=== PATIENT | male | born 1950 | race American Indian/Alaskan Native ===

== ENCOUNTER 2022-07-22 13:30 | Inpatient (IN) | payer MEDICARE ==
[2022-07-22] MEDS ORDERED: ATROPINE 1 MG/ML VIAL IV ONE (14:00)
--- NOTE | 2022-07-22 14:04 | Emergency Department Report ---
- General Chief complaint: Weakness Stated complaint: BRADYCARDIA Time Seen by Provider: 07/22/22 13:57 Source: EMS Mode of arrival: Stretcher Limitations: Altered Mental Status, Physical Limitation - History of Present Illness Initial comments: This is a 71-year-old male who presents to the emergency department with slow heart rate. Patient has history of previous stroke, aneurysm, congestive heart failure and does not provide history. Per EMS the patient is on hospice but is not DNR. At the nursing facility noted the patient's heart rate was low and they asked family if they wanted patient to be transferred to the hospital and they said yes. Patient has no complaints at this time of pain that he is able to answer yes or no questions. Severity scale (0 -10): 0 - Related Data Home Medications Medication Instructions Recorded Confirmed Last Taken Acetaminophen TAB 2 cap PO PRN PRN 07/17/15 Unknown Alum-Mag Hydrox-Simeth 20 ml PO PRN PRN 07/17/15 Unknown [id number]/5Ml (Nf) Aspirin BABY CHEW TAB 1 tab PO DAILY 07/17/15 Unknown Coreg 25 mg PO BID 07/17/15 Unknown Diovan Hct 320-12.5 mg 1 tab PO DAILY 07/17/15 Unknown Fish Oil 2 cap PO BID 07/17/15 Unknown Procardia Xl 60 mg PO DAILY 07/17/15 Unknown Vitamin D 2,000 units PO DAILY 07/17/15 Unknown Zanaflex 4 mg PO BID PRN 07/17/15 Unknown ZyrTEC 1 tab PO DAILY 07/17/15 Unknown cloNIDine 0.3 mg PO TID 07/17/15 Unknown hydrALAZINE 100 mg PO TID 07/17/15 Unknown Pravastatin 20 mg PO DAILY 07/18/15 Unknown PriLOSEC 40 mg PO DAILY 07/18/15 Unknown Allergies Allergy/AdvReac Type Severity Reaction Status Date / Time Penicillins Allergy Unknown Verified 07/22/22 13:42 ED Review of Systems ROS: Stated complaint: BRADYCARDIA Other details as noted in HPI Comment: Unobtainable due to pts medical conditions ED Past Medical Hx - Medications Home Medications: Home Medications Medication Instructions Recorded Confirmed Last Taken Type Acetaminophen TAB 2 cap PO PRN PRN 07/17/15 Unknown History Alum-Mag Hydrox-Simeth 20 ml PO PRN PRN 07/17/15 Unknown History [phone]/5Ml (Nf) Aspirin BABY CHEW TAB 1 tab PO DAILY 07/17/15 Unknown History Coreg 25 mg PO BID 07/17/15 Unknown History Diovan Hct 320-12.5 mg 1 tab PO DAILY 07/17/15 Unknown History Fish Oil 2 cap PO BID 07/17/15 Unknown History Procardia Xl 60 mg PO DAILY 07/17/15 Unknown History Vitamin D 2,000 units PO DAILY 07/17/15 Unknown History Zanaflex 4 mg PO BID PRN 07/17/15 Unknown History ZyrTEC 1 tab PO DAILY 07/17/15 Unknown History cloNIDine 0.3 mg PO TID 07/17/15 Unknown History hydrALAZINE 100 mg PO TID 07/17/15 Unknown History Pravastatin 20 mg PO DAILY 07/18/15 Unknown History PriLOSEC 40 mg PO DAILY 07/18/15 Unknown History ED Physical Exam - General Limitations: Altered Mental Status, Physical Limitation General appearance: alert, in no apparent distress - Head Head exam: Present: atraumatic, normocephalic - Eye Eye exam: Present: normal appearance - ENT ENT exam: Present: mucous membranes moist - Neck Neck exam: Present: normal inspection - Respiratory Respiratory exam: Present: normal lung sounds bilaterally. Absent: respiratory distress - Cardiovascular Cardiovascular Exam: Present: bradycardia. Absent: systolic murmur, diastolic murmur, rubs, gallop - GI/Abdominal GI/Abdominal exam: Present: soft, normal bowel sounds. Absent: tenderness - Rectal Rectal exam: Present: deferred - Extremities Exam Extremities exam: Present: normal inspection - Back Exam Back exam: Present: normal inspection - Neurological Exam Neurological exam: Present: alert, other (Is at baseline mental status) - Psychiatric Psychiatric exam: Present: normal affect, normal mood - Skin Skin exam: Present: warm, dry, intact, normal color. Absent: rash ED Course Vital Signs 07/22/22 07/22/22 07/22/22 13:30 14:45 14:52 Temperature 98.2 F Pulse Rate 40 L 37 L 36 L Respiratory 18 18 18 Rate Blood Pressure 189/120 165/87 145/80 [Left] O2 Sat by Pulse 92 95 99 Oximetry 07/22/22 07/22/22 07/22/22 15:52 16:27 18:27 Temperature Pulse Rate 34 L 32 L 34 L Respiratory 18 18 17 Rate Blood Pressure 155/75 152/96 145/78 [Left] O2 Sat by Pulse 99 97 99 Oximetry 07/22/22 07/22/22 18:31 19:58 Temperature Pulse Rate 33 L Respiratory 18 15 Rate Blood Pressure 180/85 [Left] O2 Sat by Pulse 99 95 Oximetry - Reevaluation(s) Reevaluation #1: 07/22/22 17:18 Patient's potassium resulted as normal. BNP is elevated, troponin is elevated. Patient given a rectal aspirin, started on heparin drip cardiology has been consulted and plan for admission to the hospitalist. ED Medical Decision Making - Lab Data Result diagrams: 07/22/22 18:31 07/22/22 14:47 - EKG Data -: EKG Interpreted by Me Rate: bradycardia - EKG Data 07/22/22 15:35 EKG shows complete AV block with wide QRS complex. There is also right bundle branch block. The rate is 36. - Medical Decision Making This is a 71-year-old male who presents to the emergency department with b radycardia. Patient is noted to be in complete heart block. Atropine was attempted which did not improve patient's heart rate. Patient's blood pressure is normal and patient is awake and alert and does not show any evidence of distress. Given this we are awaiting electrolytes but I am giving patient calcium and Lasix as his chest x-ray shows cardiomegaly and edema. Patient is from hospice so his POA is present and will decide next steps regarding the patient. He is not currently DNR. Critical Care Time: Yes Critical care time in (mins) excluding proc time.: 52 Critical care attestation.: If time is entered above; I have spent that time in minutes in the direct care of this critically ill patient, excluding procedure time. ED Disposition Clinical Impression: Complete heart block, Heart failure Disposition: ADMITTED INPATIENT Is pt being admited?: Yes Does the pt Need Aspirin: Yes Condition: Stable
--- NOTE | 2022-07-22 14:21 | XRay Report ---
CHEST 1 VIEW 07/22/2022 2:07 PM INDICATION / CLINICAL INFORMATION: bradycardia. COMPARISON: None available. FINDINGS: SUPPORT DEVICES: None. HEART / MEDIASTINUM: There is mild cardiomegaly. LUNGS / PLEURA: There are bilateral perihilar opacities. No pneumothorax. ADDITIONAL FINDINGS: No significant additional findings. IMPRESSION: 1. Mild cardiomegaly with bilateral perihilar opacities likely indicating pulmonary edema Signer Name: Austin Gonzalez MD Signed: 07/22/2022 2:17 PM Workstation Name: [email or web address]
[2022-07-22] MEDS ORDERED: ATROPINE 0.1% (1 MG/10 ML) CARDIAC SYRINGE ONE (14:34)
[2022-07-22] MEDS ORDERED: CALCIUM GLUCONATE 1,000 MG in SODIUM CHLORIDE 0.9% 100 ML IV ONE (15:27)
[2022-07-22] MEDS ORDERED: FUROSEMIDE 40 MG/4 ML INJ IV ONE (15:27)
[2022-07-22 16:27] LABS: Alanine Aminotransferase 86 units/L (7-56); Albumin 3.7 g/dL (3.9-5); BUN/Creatinine Ratio 38; Blood Urea Nitrogen 45 mg/dL (9-20); Calcium 9.3 mg/dL (8.4-10.2); Hemolysis Index 15
[2022-07-22] MEDS ORDERED: CALC GLUCONATE 1GM/NS 100 ML 1 GM/100 ML BAG IV ONE (16:30)
[2022-07-22 16:41] LABS: Basophils % (Auto) 0.5 % (0.0-1.8); Eosinophils % (Auto) 0.7 % (0.0-4.3); Hematocrit 40.1 % (35.5-45.6); Hemoglobin 12.8 gm/dl (11.8-15.2); Lymphocytes # (Auto) 1.5 K/mm3 (1.2-5.4); Lymphocytes % (Auto) 26.1 % (13.4-35.0); Mean Corpuscular HGB Conc 32 % (32-34); Mean Corpuscular Volume 96 fl (84-94); Monocytes # (Auto) 0.5 K/mm3 (0.0-0.8); Monocytes % (Auto) 9.3 % (0.0-7.3); Platelet Count 199 K/mm3 (140-440); Red Blood Count 4.17 M/mm3 (3.65-5.03); Red Cell Distribution Width 14.9 % (13.2-15.2)
[2022-07-22 17:08] LABS: Chol/HDL Ratio 3.48 %; HDL Cholesterol 49 mg/dL (40-59); LDL Cholesterol,Direct 87 mg/dL (50-130)
[2022-07-22] MEDS ORDERED: ASPIRIN 300 MG RECT SUPP PR ONE (17:14)
[2022-07-22] MEDS ORDERED: HEPARIN PRN BOLUS(standard intensity drip) IV (17:14)
[2022-07-22] MEDS ORDERED: HEPARIN BOLUS 10,000 UNIT/10 ML VIAL IV ONE (17:14)
--- NOTE | 2022-07-22 17:27 | History and Physical Report ---
History of Present Illness Chief complaint: His heart rate was in the 40s History of present illness: 71 YO Male Longterm Facility Resident at [facility] currently on Hospice Care with CHF, Vascular Dementia, Cerebral Atherosclerosis, Malnutrition, Debility, Metabolic Encephalopathy, GERD, HLD presents ED for evaluation. Patient is confused and lethargic the time of evaluation is unable to provide history. Patient history [facility] staff, ED staff, as well as long term facility staff. Patient staff reports that patient was found to have a heart rate in the 40s today. EMS was notified and upon arrival the patient was found to be in distress and simply transported to [facility] for further care and evaluation of the aforementioned symptoms. The patient seen and evaluated in the emergency department. All lab and imaging studies reviewed. Patient family revoked hospice benefit and request aggressive medical therapy this time. Patient found to have complete heart block, as well as clinical symptoms consistent with CHF decompensation, NSTEMI, and hyponatremia. Cardiology team consulted in ED. Patient admitted to IMCU and initiated on ACS protocol as well as CHF protocol. No reports of fever, chills, chest pain, palpitation, productive cough, skin rash and recent contact, known exposure to COVID-19. Patient is lethargic with diminished cognition at time of evaluation but has a positive gag reflex and is able to protect his airway without difficulty the time my evaluation. Past History Past Medical History: GERD, heart failure, hypertension, hyperlipidemia, other (See HPI) Past Surgical History: No surgical history, Other (Reviewed) Social history: . denies: smoking, alcohol abuse, prescription drug abuse Family history: diabetes, hypertension Medications and Allergies Allergies Allergy/AdvReac Type Severity Reaction Status Date / Time Penicillins Allergy Unknown Verified 07/22/22 13:42 Home Medications Medication Instructions Recorded Confirmed Last Taken Type Acetaminophen TAB 2 cap PO PRN PRN 07/17/15 Unknown History Alum-Mag Hydrox-Simeth 20 ml PO PRN PRN 07/17/15 Unknown History [phone]/5Ml (Nf) Aspirin BABY CHEW TAB 1 tab PO DAILY 07/17/15 Unknown History Coreg 25 mg PO BID 07/17/15 Unknown History Diovan Hct 320-12.5 mg 1 tab PO DAILY 07/17/15 Unknown History Fish Oil 2 cap PO BID 07/17/15 Unknown History Procardia Xl 60 mg PO DAILY 07/17/15 Unknown History Vitamin D 2,000 units PO DAILY 07/17/15 Unknown History Zanaflex 4 mg PO BID PRN 07/17/15 Unknown History ZyrTEC 1 tab PO DAILY 07/17/15 Unknown History cloNIDine 0.3 mg PO TID 07/17/15 Unknown History hydrALAZINE 100 mg PO TID 07/17/15 Unknown History Pravastatin 20 mg PO DAILY 07/18/15 Unknown History PriLOSEC 40 mg PO DAILY 07/18/15 Unknown History Active Meds: Active Medications Heparin Sodium (Porcine) (Heparin Prn Bolus(Standard Intensity Drip)) 2,000 unit 40 unit/kg (2000 unit) IV Q6H PRN PRN Reason: For Heparin Anti-Xa < 0.1 CALC GLUCONATE 1GM/NS 100 ML (Calcium Gluonate/Ns 1,000mg/100ml) 1 gm in 100 mls @ 100 mls/hr IV ONCE ONE Stop: 07/22/22 17:29 Last Admin: 07/22/22 16:00 Dose: 100 mls/hr Heparin Sodium/Sodium Chloride (Heparin/ 0.45% Nacl-25,000 Unit/250 Ml) 25,000 unit in 250 mls @ 7.348 mls/hr IV TITRATE HOLLAND; Protocol Review of Systems ROS unobtainable: due to mental status Exam - Constitutional Vitals: Temp Pulse Resp BP Pulse Ox 98.2 F 32 L 18 152/96 97 07/22/22 13:30 07/22/22 16:27 07/22/22 16:27 07/22/22 16:27 07/22/22 16:27 General appearance: Present: mild distress, cachectic - EENT Eyes: Present: PERRL ENT: hearing intact, clear oral mucosa, hearing decreased - Neck Neck: Present: supple, normal ROM - Respiratory Respiratory effort: normal Respiratory: bilateral: CTA - Cardiovascular Heart Sounds: Present: S1 & S2. Absent: rub, click - Extremities Extremities: no ischemia Extremity abnormal: edema Peripheral Pulses: within normal limits - Abdominal General gastrointestinal: Present: soft, non-tender, non-distended, normal bowel sounds Male genitourinary: Present: normal - Integumentary Integumentary: Present: clear, warm, dry - Musculoskeletal Musculoskeletal: generalized weakness - Psychiatric Psychiatric: no appropriate mood/affect, no intact judgment & insight, no memory intact - Neurologic Neurologic: moves all extremities, no gait normal HEART Score - HEART Score Troponin: Troponin T 0.153 ng/mL (0.00-0.029) H* 07/22/22 14:47 Results - Labs CBC & Chem 7: 07/22/22 18:31 07/22/22 14:47 Labs: Abnormal lab results 07/22/22 07/22/22 Range/Units 14:47 14:47 MCV 96 H (84-94) fl [place] % (Auto) 9.3 H (0.0-7.3) % Sodium 150 H (137-145) mmol/L Chloride 113.1 H (98-107) mmol/L BUN 45 H (9-20) mg/dL Magnesium 2.50 H (1.7-2.3) mg/dL AST 50 H (5-40) units/L ALT 86 H (7-56) units/L Troponin T 0.153 H* (0.00-0.029) ng/mL NT-Pro-B Natriuret Pep 89374 H (0-900) pg/mL Albumin 3.7 L (3.9-5) g/dL Assessment and Plan - Patient Problems (1) NSTEMI (non-ST elevated myocardial infarction) Current Visit: No Status: Acute Plan to address problem: ACS protocol: Serial cardiac enzymes, EKG, telemetry monitoring, therapeutic anticoagulation, cardiology team consulted, further care and evaluation as per cardiology team. (2) Complete heart block Current Visit: No Status: Acute Plan to address problem: Patient admitted to IMCU, telemetry monitoring, supportive care, positive inotropic therapy as clinically indicated. Cardiology team consulted. (3) CHF (congestive heart failure) Current Visit: Yes Status: Acute Qualifiers: Heart failure type: systolic Heart failure chronicity: acute on chronic Qualified Code(s): I50.23 - Acute on chronic systolic (congestive) heart failure Plan to address problem: Strict I/O, monitoring application, daily weight, afterload reduction, blood pressure control, supplemental oxygen, pulse oximetry, cardiology team consulted. (4) Vascular dementia Current Visit: Yes Status: Acute Qualifiers: Dementia behavioral disturbance: without behavioral disturbance Qualified Code(s): F01.50 - Vascular dementia without behavioral disturbance Plan to address problem: Verbal prompting, verbal redirection, benzodiazepine therapy as clinically indicated. (5) Cerebral atherosclerosis Current Visit: Yes Status: Acute Plan to address problem: Risk factor reduction, antiplatelet therapy as clinically indicated. Supportive care. (6) Debility Current Visit: Yes Status: Acute Plan to address problem: Fall precautions, supportive care. (7) Malnutrition Current Visit: Yes Status: Acute Qualifiers: Malnutrition type: protein-calorie malnutrition Protein-calorie malnutrition severity: moderate Qualified Code(s): E44.0 - Moderate protein- calorie malnutrition Plan to address problem: Increase protein intake, dietary segmentation and when patient is awake and alert only. (8) GERD (gastroesophageal reflux disease) Current Visit: Yes Status: Acute Qualifiers: Esophagitis presence: without esophagitis Qualified Code(s): K21.9 - Gastro-esophageal reflux disease without esophagitis Plan to address problem: PPI therapy, supportive care. (9) Hypertension Current Visit: Yes Status: Acute Qualifiers: Hypertension type: primary hypertension Qualified Code(s): I10 - Essential (primary) hypertension Plan to address problem: Monitor blood pressure every shift, continue medical management. (10) Hyperlipidemia Current Visit: Yes Status: Acute Qualifiers: Hyperlipidemia type: mixed hyperlipidemia Qualified Code(s): E78.2 - Mixed hyperlipidemia Plan to address problem: Low-cholesterol diet, risk factor reduction, lipid panel. (11) Metabolic encephalopathy Current Visit: Yes Status: Acute Plan to address problem: Supportive care, neurochecks. (12) DVT prophylaxis Current Visit: Yes Status: Acute Plan to address problem: SCD to bilateral lower extremities while in bed (13) Advance care planning Current Visit: Yes Status: Acute Plan to address problem: Disease education done, care plan discussed, diagnoses discussed, prognosis discussed, patient is full code, +30 minutes. Patient family revoked hospice benefit at this time and request aggressive medical therapy. +30 minutes. (14) Preventative health care Current Visit: Yes Status: Acute Plan to address problem: Patient family counseled regarding prognosis. Patient to follow-up with primary care physician for all age and risk factor appropriate screening test. +30 minutes.
[2022-07-22] MEDS ORDERED: ALBUTEROL 2.5 MG/3 ML NEBU IH PRN (17:29)
[2022-07-22] MEDS ORDERED: HYDROmorphone 0.5 MG/0.5 ML INJ IV PRN (17:29)
[2022-07-22] MEDS ORDERED: oxyCODONE /ACETAMINOPHEN 5-325MG TAB PO PRN (17:29)
[2022-07-22] MEDS ORDERED: ACETAMINOPHEN 325 MG TAB PO PRN (17:29)
[2022-07-22] MEDS ORDERED: DOPamine 800 MG/D5W 250ML 800 MG/250 ML BAG IV ONE (17:37)
[2022-07-22] MEDS ORDERED: HEPARIN/ 0.45% NACL DRIP 25,000 UNIT/250 ML BAG IV SCH (18:00)
--- NOTE | 2022-07-22 18:07 | Consultation ---
History of Present Illness Consult date: 07/22/22 Consult reason: congestive heart failure, elevated troponin History of present illness: Patient is 71-year-old male with a reported past medical history of CHF, history of CVA, aneurysm who presents to the ED due to bradycardia. History is taken from chart and per conversation with staff as patient cannot provide history due to mental status. Per documentation patient is at nursing facility and is on hospice care but not a DNR. Patient was noted to have a slow heart rate and was transferred to the hospital for further evaluation. In the ED patient was found to have elevated troponins, elevated BNP, CXR shows pulmonary edema, and EKG showed heart block. At time of interview patient denies any complaints. Patient is previously unknown to our practice. Cardiology is consulted for CHF/NSTEMI/bradycardia. Past History Past Medical History: other (see HPI) Past Surgical History: Other (See HPI) Social history: other (unable to obtain) Family history: other (unable to obtain) Medications and Allergies Allergies Allergy/AdvReac Type Severity Reaction Status Date / Time Penicillins Allergy Unknown Verified 07/22/22 13:42 Home Medications Medication Instructions Recorded Confirmed Last Taken Type Acetaminophen TAB 1,000 mg PO Q6HR PRN 07/17/15 07/23/22 Unknown History Aspirin BABY CHEW TAB 1 tab PO DAILY 07/17/15 07/23/22 Unknown History Coreg 25 mg PO BID 07/17/15 07/23/22 Unknown History Procardia Xl 60 mg PO DAILY 07/17/15 07/23/22 Unknown History cloNIDine 0.3 mg PO Q8HR 07/17/15 07/23/22 Unknown History hydrALAZINE 100 mg PO TID 07/17/15 07/23/22 Unknown History Pravastatin 20 mg PO DAILY 07/18/15 07/23/22 Unknown History Docusate Sodium [Colace] 100 mg PO BID PRN 07/23/22 07/23/22 Unknown History Magnesium Hydroxide [Milk of 30 ml PO PRN PRN 07/23/22 07/23/22 Unknown History Magnesia] Melatonin [Melatonin 3MG TAB] 3 mg PO QHS PRN 07/23/22 07/23/22 Unknown History Nitroglycerin [Nitrostat] 0.4 mg SL Q5MIN PRN 07/23/22 07/23/22 Unknown History Valsartan [Diovan] 320 mg PO QDAY 07/23/22 07/23/22 Unknown History Active Meds: Active Medications Acetaminophen (Acetaminophen 325 Mg Tab) 650 mg PO Q6H PRN PRN Reason: Pain MILD(1-3)/Fever >100.5/SCHUSTER Albuterol (Albuterol 2.5 Mg/3 Ml Nebu) 2.5 mg IH Q3HRT PRN PRN Reason: Shortness Of Breath Heparin Sodium (Porcine) (Heparin Prn Bolus(Standard Intensity Drip)) 2,000 unit 40 unit/kg (2000 unit) IV Q6H PRN PRN Reason: For Heparin Anti-Xa < 0.1 Hydromorphone HCl (Hydromorphone 0.5 Mg/0.5 Ml Inj) 0.5 mg IV Q3H PRN PRN Reason: Pain , Severe (7-10) Heparin Sodium/Sodium Chloride (Heparin/ 0.45% Nacl-25,000 Unit/250 Ml) 25,000 unit in 250 mls @ 7.348 mls/hr IV TITRATE HOLLAND; Protocol Dopamine HCl/Dextrose (Dopamine 800 Mg/D5w 250ml) 800 mg in 250 mls @ 2.296 mls/hr IV TITR ONE; Protocol Stop: 07/27/22 06:30 Oxycodone/Acetaminophen (Oxycodone /Acetaminophen 5-325mg Tab) 1 tab PO Q6H PRN PRN Reason: Pain, Moderate (4-6) Sodium Chloride (Sodium Chloride 0.9% 10 Ml Flush Syringe) 10 ml IV BID HOLLAND Sodium Chloride (Sodium Chloride 0.9% 10 Ml Flush Syringe) 10 ml IV PRN PRN PRN Reason: LINE FLUSH Review of Systems ROS unobtainable: due to mental status Physical Examination Vital Signs Temp Pulse Resp BP Pulse Ox 98.2 F 40 L 18 189/120 92 07/22/22 13:30 07/22/22 13:30 07/22/22 13:30 07/22/22 13:30 07/22/22 13:30 General appearance: no acute distress HEENT: Positive: PERRL Neck: Positive: trachea midline Cardiac: Positive: Bradycardia Lungs: Positive: Decreased Breath Sounds Neuro: Positive: Grossly Intact Abdomen: Positive: Soft Skin: Negative: Rash, Suspicious Lesions, Ulceration Extremities: Absent: edema Results 07/23/22 04:35 07/23/22 04:35 Cardiac Enzymes 07/22/22 Range/Units 14:47 AST 50 H (5-40) units/L Lipids 07/22/22 Range/Units 14:47 Triglycerides 93 (2-149) mg/dL Cholesterol 171 (50-199) mg/dL HDL Cholesterol 49 (40-59) mg/dL Cholesterol/HDL Ratio 3.48 % CBC 07/22/22 Range/Units 14:47 WBC 5.8 (4.5-11.0) K/mm3 RBC 4.17 (3.65-5.03) M/mm3 Hgb 12.8 (11.8-15.2) gm/dl Hct 40.1 (35.5-45.6) % Plt Count 199 (140-440) K/mm3 Lymph # (Auto) 1.5 (1.2-5.4) K/mm3 [place] # (Auto) 0.5 (0.0-0.8) K/mm3 Eos # (Auto) 0.0 (0.0-0.4) K/mm3 Baso # (Auto) 0.0 (0.0-0.1) K/mm3 Comprehensive Metabolic Panel 07/22/22 Range/Units 14:47 Sodium 150 H (137-145) mmol/L Potassium 4.0 (3.6-5.0) mmol/L Chloride 113.1 H (98-107) mmol/L Carbon Dioxide 22 (22-30) mmol/L BUN 45 H (9-20) mg/dL Creatinine 1.2 (0.8-1.3) mg/dL Glucose 84 (75-100) mg/dL Calcium 9.3 (8.4-10.2) mg/dL AST 50 H (5-40) units/L ALT 86 H (7-56) units/L Alkaline Phosphatase 81 (35-129) units/L Total Protein 6.4 (6.3-8.2) g/dL Albumin 3.7 L (3.9-5) g/dL - Imaging and Cardiology EKG: image reviewed EKG interpretations - Telemetry EKG Rhythm: 3rd Degree HB Assessment and Plan Patient is 71-year-old male with a reported past medical history of CHF, history of CVA, aneurysm who presents to the ED due to bradycardia AMS Complete heart block CHF NSTEMI Plan: EKG shows complete heart block Troponin noted to be elevated agree with heparin drip for anticoagulation at this time As it is unclear if patient is a hospice patient and there is no family at bedside to determine goals of care Recommend low-dose dopamine and keeping pacer pads on patient in case of need of external pacing. Will reassess patient in a.m. No family number in chart at this time. However per conversation with hospitalist, they will attempt to reach out to family to determine goals of care Patient to be n.p.o. after midnight BNP noted to be elevated and CXR shows pulmonary edema however upon exam patient appears euvolemic with no bilateral lower extremity edema and patient does not appear to be short of breath Will hold Lasix at this time. Also will hold Lasix due to soft BP. If patient does not appear to become short of breath or hypoxic recommend gentle diuresis with Lasix 20mg IV Strict I&O's, daily weights, repeat BMP in a.m. No AV john agents Hold GDMT due to soft BP and bradycardia Patient conjunction with Dr. Boyce who agrees this plan of care 30 min of critical care time spent in care and coordination of patient - Patient Problems (1) NSTEMI (non-ST elevated myocardial infarction) Current Visit: No Status: Acute (2) Complete heart block Current Visit: No Status: Inactive (3) Heart failure Current Visit: No Status: Inactive
[2022-07-22 19:27] LABS: Hematocrit 38.7 % (35.5-45.6); Hemoglobin 12.8 gm/dl (11.8-15.2)
[2022-07-22 19:45] LABS: INR 1.06 (0.87-1.13)
[2022-07-22 19:46] LABS: Partial Thromboplastin Time 34.9 Sec. (24.2-36.6)
[2022-07-23] MEDS ORDERED: HEPARIN 10,000 UNITS/10 ML VIAL IV PRN (02:00)
[2022-07-23 05:07] LABS: Basophils % (Auto) 0.7 % (0.0-1.8); Eosinophils % (Auto) 0.6 % (0.0-4.3); Hematocrit 37.2 % (35.5-45.6); Hemoglobin 12.2 gm/dl (11.8-15.2); Lymphocytes # (Auto) 1.3 K/mm3 (1.2-5.4); Lymphocytes % (Auto) 25.7 % (13.4-35.0); Mean Corpuscular HGB Conc 33 % (32-34); Mean Corpuscular Volume 95 fl (84-94); Monocytes # (Auto) 0.6 K/mm3 (0.0-0.8); Monocytes % (Auto) 10.8 % (0.0-7.3); Platelet Count 196 K/mm3 (140-440); Red Blood Count 3.92 M/mm3 (3.65-5.03); Red Cell Distribution Width 14.7 % (13.2-15.2)
[2022-07-23 05:52] LABS: Alanine Aminotransferase 71 units/L (7-56); Albumin 3.5 g/dL (3.9-5); BUN/Creatinine Ratio 30; Blood Urea Nitrogen 42 mg/dL (9-20); Calcium 9.2 mg/dL (8.4-10.2); Hemolysis Index 14
--- NOTE | 2022-07-23 11:48 | Electrocardiograph Report ---
[facility] Test Date: 2022-07-22 Test Time: 14:50:00 Pat Name: DAKSHA MOLINA Department: Room: A265 1 Gender: M Administrative Director: 0000 : 1950 Requested By: MARGO MATHEW Order Number: [id number] Reading MD: Oscar Blas Measurements Intervals [place] Rate: 36 P: -2 MI: QRS: 30 QRSD: 147 T: 268 QT: 624 QTc: 485 Interpretive Statements Complete AV block with wide QRS complex Right bundle branch block No previous ECG available for comparison Electronically Signed On 07-23-2022 8:48:47 PDT by Oscar Blas
--- NOTE | 2022-07-23 12:29 | Progress Note ---
Assessment and Plan Patient is 71-year-old male with a reported past medical history of CHF, history of CVA, aneurysm who presents to the ED due to bradycardia AMS Complete heart block CHF NSTEMI Plan: Telemetry reviewed patient remains in complete heart block Discussed with patient POA(Sugey Acevesro who is listed as POA in chart) this a.m. about goals of care for patient. POA reported that they did not want any invasive procedures and that they would like the patient to be comfortable and have AND/DNR AND and DNR order signed and put in patient's chart BNP noted to be elevated and CXR shows pulmonary edema however upon exam patient appears euvolemic with no bilateral lower extremity edema and patient does not appear to be short of breath Will hold Lasix at this time. Also will hold Lasix due to soft BP. If patient does not appear to become short of breath or hypoxic recommend gentle diuresis with Lasix 20mg IV Strict I&O's, daily weights, repeat BMP in a.m. No AV john agents Hold GDMT due to soft BP and bradycardia No further cardiac intervention indicated at this time. Will see as needed Patient conjunction with Dr. Boyce who agrees this plan of care 30 min of critical care time spent in care and coordination of patient - Patient Problems (1) NSTEMI (non-ST elevated myocardial infarction) Current Visit: No Status: Acute (2) Complete heart block Current Visit: No Status: Inactive (3) Heart failure Current Visit: No Status: Inactive Subjective Date of service: 07/23/22 Principal diagnosis: Complete heart block, NSTEMI Interval history: Patient resting bed in no acute distress. Patient remains with altered mental status Complete heart block heart rate 30s Objective Vital Signs Temp Pulse Pulse Resp Resp BP BP 07/23/22 07:01 31 L 15 169/79 07/23/22 06:01 35 L 20 169/79 07/23/22 05:01 31 L 17 154/76 07/23/22 04:21 18 07/23/22 04:01 33 L 20 153/62 07/23/22 04:00 35 L 33 L 20 07/23/22 03:25 98.5 F 07/23/22 03:01 33 L 16 184/80 07/23/22 02:01 35 L 21 160/98 07/23/22 02:00 35 L 21 07/23/22 01:01 34 L 30 H 160/98 07/23/22 00:49 98.1 F 07/23/22 00:10 35 L 07/23/22 00:01 33 L 25 H 168/96 07/22/22 23:31 34 L 22 143/95 07/22/22 23:30 41 L 17 105/79 07/22/22 23:01 34 L 17 143/95 07/22/22 22:31 35 L 15 159/90 07/22/22 22:01 33 L 18 149/88 07/22/22 21:48 98.7 F 07/22/22 21:47 35 L 18 165/90 07/22/22 21:38 35 L 21 07/22/22 19:58 15 07/22/22 18:31 33 L 18 180/85 07/22/22 18:27 34 L 17 145/78 07/22/22 16:27 32 L 18 152/96 07/22/22 15:52 34 L 18 155/75 07/22/22 14:52 36 L 18 145/80 07/22/22 14:45 37 L 18 165/87 07/22/22 13:30 98.2 F 40 L 18 189/120 Pulse Ox 07/23/22 07:01 100 07/23/22 06:01 100 07/23/22 05:01 100 07/23/22 04:21 07/23/22 04:01 100 07/23/22 04:00 100 07/23/22 03:25 07/23/22 03:01 98 07/23/22 02:01 94 07/23/22 02:00 94 07/23/22 01:01 96 07/23/22 00:49 07/23/22 00:10 07/23/22 00:01 96 07/22/22 23:31 99 07/22/22 23:30 99 07/22/22 23:01 98 07/22/22 22:31 98 07/22/22 22:01 98 07/22/22 21:48 07/22/22 21:47 98 07/22/22 21:38 07/22/22 19:58 95 07/22/22 18:31 99 07/22/22 18:27 99 07/22/22 16:27 97 07/22/22 15:52 99 07/22/22 14:52 99 07/22/22 14:45 95 07/22/22 13:30 92 - Physical Examination General: No Apparent Distress HEENT: Positive: PERRL Neck: Positive: trachea midline Cardiac: Positive: Bradycardia Lungs: Positive: Decreased Breath Sounds Neuro: Positive: Grossly Intact Abdomen: Positive: Soft Skin: Negative: Rash, Suspicious Lesions, Ulceration Extremities: Absent: edema - Labs and Meds Cardiac Enzymes 07/22/22 07/23/22 Range/Units 14:47 04:35 AST 50 H 33 (5-40) units/L Coagulation 07/22/22 Range/Units 18:31 PT 15.3 H (12.2-14.9) Sec. INR 1.06 (0.87-1.13) APTT 34.9 (24.2-36.6) Sec. Lipids 07/22/22 Range/Units 14:47 Triglycerides 93 (2-149) mg/dL Cholesterol 171 (50-199) mg/dL HDL Cholesterol 49 (40-59) mg/dL Cholesterol/HDL Ratio 3.48 % CBC 07/22/22 07/22/22 07/23/22 Range/Units 14:47 18:31 04:35 WBC 5.8 5.1 (4.5-11.0) K/mm3 RBC 4.17 3.92 (3.65-5.03) M/mm3 Hgb 12.8 12.8 12.2 (11.8-15.2) gm/dl Hct 40.1 38.7 37.2 (35.5-45.6) % Plt Count 199 201 196 (140-440) K/mm3 Lymph # (Auto) 1.5 1.3 (1.2-5.4) K/mm3 [place] # (Auto) 0.5 0.6 (0.0-0.8) K/mm3 Eos # (Auto) 0.0 0.0 (0.0-0.4) K/mm3 Baso # (Auto) 0.0 0.0 (0.0-0.1) K/mm3 Comprehensive Metabolic Panel 07/22/22 07/23/22 Range/Units 14:47 04:35 Sodium 150 H 153 H (137-145) mmol/L Potassium 4.0 3.9 (3.6-5.0) mmol/L Chloride 113.1 H 113.9 H (98-107) mmol/L Carbon Dioxide 22 25 (22-30) mmol/L BUN 45 H 42 H (9-20) mg/dL Creatinine 1.2 1.4 H (0.8-1.3) mg/dL Glucose 84 78 (75-100) mg/dL Calcium 9.3 9.2 (8.4-10.2) mg/dL AST 50 H 33 (5-40) units/L ALT 86 H 71 H (7-56) units/L Alkaline Phosphatase 81 74 (35-129) units/L Total Protein 6.4 5.8 L (6.3-8.2) g/dL Albumin 3.7 L 3.5 L (3.9-5) g/dL - Imaging and Cardiology EKG: image reviewed - Telemetry EKG Rhythm: 3rd Degree HB AV and intraventricular conduction: complete (3) AV block
--- NOTE | 2022-07-23 14:27 | Discharge Summary ---
Providers - Providers Date of Admission: 07/22/22 17:30 Attending physician: SISI SANFORD MD 07/22/22 17:30 Consult to Physician [CONS] Routine Comment: Consulting Provider: CONOR HOLMAN Physician Instructions: Reason For Exam: chf/nstemi Primary care physician: ESTHELA FLOR Hospitalization Reason for admission: Altered mental status Condition: Stable Hospital course: 71 YO Male Care Home Facility Resident at [facility] currently on Hospice Care with CHF, Vascular Dementia, Cerebral Atheros clerosis, Malnutrition, Debility, Metabolic Encephalopathy, GERD, HLD presents ED for evaluation. Patient is confused and lethargic the time of evaluation is unable to provide history. Patient history [facility] staff, ED staff, as well as halfway facility staff. Patient staff reports that patient was found to have a heart rate in the 40s today. EMS was notified and upon arrival the patient was found to be in distress and simply transported to [facility] for further care and evaluation of the aforementioned symptoms. The patient seen and evaluated in the emergency department. All lab and imaging studies reviewed. Patient family revoked hospice benefit and request aggressive medical therapy this time. Patient found to have complete heart block, as well as clinical symptoms consistent with CHF decompensation, NSTEMI, and hyponatremia. Cardiology team consulted in ED. Patient admitted to IMCU and initiated on ACS protocol as well as CHF protocol. No reports of fever, chills, chest pain, palpitation, productive cough, skin rash and recent contact, known exposure to COVID-19. Patient is lethargic with diminished cognition at time of evaluation but has a positive gag reflex and is able to protect his airway without difficulty the time my evaluation. 07/23: I discussed with family, Ms Soriano Patient sister who is also POA and she states that will want him comfortable and back to Hospice and does not want any invasive care. she understands the terminal condition of the condition. Will discuss with case management about discharge plan Per cardiology who also spoke with Ms Soriano, below is the documentation which Ms Soriano confirmed Telemetry reviewed patient remains in complete heart block Discussed with patient POA(Sugey Lopez who is listed as POA in chart) this a.m. about goals of care for patient. POA reported that they did not want any invasive procedures and that they would like the patient to be comfortable and have AND/DNR AND and DNR order signed and put in patient's chart BNP noted to be elevated and CXR shows pulmonary edema however upon exam patient appears euvolemic with no bilateral lower extremity edema and patient does not appear to be short of breath Will hold Lasix at this time. Also will hold Lasix due to soft BP. If patient does not appear to become short of breath or hypoxic recommend gentle diuresis with Lasix 20mg IV Strict I&O's, daily weights, repeat BMP in a.m. No AV john agents Hold GDMT due to soft BP and bradycardia No further cardiac intervention indicated at this time. Will see as needed (1) NSTEMI (non-ST elevated myocardial infarction) Current Visit: No Status: Acute Plan to address problem: ACS protocol: Serial cardiac enzymes, EKG, telemetry monitoring, therapeutic anticoagulation, cardiology team consulted, further care and evaluation as per cardiology team. (2) Complete heart block Current Visit: No Status: Acute Plan to address problem: Patient admitted to IMCU, telemetry monitoring, supportive care, positive inotropic therapy as clinically indicated. Cardiology team consulted. (3) CHF (congestive heart failure) Current Visit: Yes Status: Acute Qualifiers: Heart failure type: systolic Heart failure chronicity: acute on chronic Qualified Code(s): I50.23 - Acute on chronic systolic (congestive) heart failure Plan to address problem: Strict I/O, monitoring application, daily weight, afterload reduction, blood pressure control, supplemental oxygen, pulse oximetry, cardiology team consulted. (4) Vascular dementia Current Visit: Yes Status: Acute Qualifiers: Dementia behavioral disturbance: without behavioral disturbance Qualified Code(s): F01.50 - Vascular dementia without behavioral disturbance Plan to address problem: Verbal prompting, verbal redirection, benzodiazepine therapy as clinically indicated. (5) Cerebral atherosclerosis Current Visit: Yes Status: Acute Plan to address problem: Risk factor reduction, antiplatelet therapy as clinically indicated. Supportive care. (6) Debility Current Visit: Yes Status: Acute Plan to address problem: Fall precautions, supportive care. (7) Malnutrition Current Visit: Yes Status: Acute Qualifiers: Malnutrition type: protein-calorie malnutrition Protein-calorie malnutrition severity: moderate Qualified Code(s): E44.0 - Moderate protein- calorie malnutrition Plan to address problem: Increase protein intake, dietary segmentation and when patient is awake and alert only. (8) GERD (gastroesophageal reflux disease) Current Visit: Yes Status: Acute Qualifiers: Esophagitis presence: without esophagitis Qualified Code(s): K21.9 - Gastro-esophageal reflux disease without esophagitis Plan to address problem: PPI therapy, supportive care. (9) Hypertension Current Visit: Yes Status: Acute Qualifiers: Hypertension type: primary hypertension Qualified Code(s): I10 - Essential (primary) hypertension Plan to address problem: Monitor blood pressure every shift, continue medical management. (10) Hyperlipidemia Current Visit: Yes Status: Acute Qualifiers: Hyperlipidemia type: mixed hyperlipidemia Qualified Code(s): E78.2 - Mixed hyperlipidemia Plan to address problem: Low-cholesterol diet, risk factor reduction, lipid panel. (11) Metabolic encephalopathy Current Visit: Yes Status: Acute Plan to address problem: Supportive care, neurochecks. (12) DVT prophylaxis Current Visit: Yes Status: Acute Plan to address problem: SCD to bilateral lower extremities while in bed (13) Advance care planning Current Visit: Yes Status: Acute Plan to address problem: Disease education done, care plan discussed, diagnoses discussed, prognosis discussed, patient is full code, +30 minutes. Patient family revoked hospice benefit at this time and request aggressive medical therapy. +30 minutes. (14) Preventative health care Current Visit: Yes Status: Acute Plan to address problem: Patient family counseled regarding prognosis. Patient to follow-up with primary care physician for all age and risk factor appropriate screening test. +30 minutes. Disposition: 50 HOSPICE/HOME Final Discharge Diagnosis (Prints w/discharge instructions): NSTEMI (non-ST elevated myocardial infarction). Complete heart block. CHF (congestive heart failure). Heart failure type: systolic Heart failure chronicity: acute on chronic Qualified Code(s): I50.23 - Acute on chronic systolic (congestive) heart failure. Vascular dementia. Cerebral atherosclerosis. Debility. Malnutrition protein-calorie malnutrition Protein-calorie malnutrition severity: moderate Qualified Code(s): E44.0 - Moderate protein-calorie malnutr ition. GERD (gastroesophageal reflux disease). Hypertension. Hyperlipidemia. Metabolic encephalopathy Time spent for discharge: 35 mins Core Measure Documentation - Palliative Care Palliative Care/ Comfort Measures: Not Applicable - Core Measures Any of the following diagnoses?: none Exam - Physical Exam Narrative exam: General appearance: Present: No distress, cachectic - EENT Eyes: Present: PERRL ENT: hearing intact, clear oral mucosa, hearing decreased - Neck Neck: Present: supple, normal ROM - Respiratory Respiratory effort: normal Respiratory: bilateral: CTA - Cardiovascular Heart Sounds: Present: S1 & S2. Bradycardic absent: rub, click - Extremities Extremities: no ischemia Extremity abnormal: edema Peripheral Pulses: within normal limits - Abdominal General gastrointestinal: Present: soft, non-tender, non-distended, normal bowel sounds Male genitourinary: Present: normal - Integumentary Integumentary: Present: clear, warm, dry - Musculoskeletal Musculoskeletal: generalized weakness - Psychiatric Psychiatric: no appropriate mood/affect, no intact judgment & insight, no memory intact - Neurologic Neurologic: moves all extremities, no gait alice - Constitutional Vitals: Temp Pulse Resp BP Pulse Ox 98.5 F 32 L 20 170/98 100 07/23/22 03:25 07/23/22 13:00 07/23/22 13:00 07/23/22 13:00 07/23/22 13:00 Plan Activity: advance as tolerated Diet: low fat Follow up with: ESTHELA FLOR MD [Primary Care Provider] - 7 Days
[2022-07-23] MEDS ORDERED: hydrALAZINE 20 MG/1 ML INJ IV PRN (15:40)
[2022-07-23] MEDS ORDERED: VALSARTAN 160MG TAB PO SCH (16:00)
[2022-07-23 16:06] VITALS: BP 161/86
[2022-07-23] MEDS ORDERED: hydrALAZINE 100 MG TAB PO SCH (20:00)
== END 2022-07-23 16:12 | DRG 280 ==
LOC: ED 13:30 → IMCU 17:30
PROVIDERS: ADMIT Internal Medicine; ATTEND Internal Medicine
DX: I21.4 Non-ST elevation (NSTEMI) myocardial infarction (principal); G93.41 Metabolic encephalopathy; I50.23 Acute on chronic systolic (congestive) heart failure; E44.0 Moderate protein-calorie malnutrition; I44.2 Atrioventricular block, complete; E87.1 Hypo-osmolality and hyponatremia; Z68.1 Body mass index [BMI] 19.9 or less, adult; I67.2 Cerebral atherosclerosis; F01.50 Vascular dementia, unspecified severity, without behavioral disturbance, psychotic disturbance, mood disturbance, and anxiety; K21.9 Gastro-esophageal reflux disease without esophagitis; E78.5 Hyperlipidemia, unspecified; R53.81 Other malaise; I11.0 Hypertensive heart disease with heart failure; Z82.49 Family history of ischemic heart disease and other diseases of the circulatory system; Z51.5 Encounter for palliative care; Z83.3 Family history of diabetes mellitus
CPT/HCPCS: 36415; 71045; 80053; 80061; 83735; 83880; 84443; 84484; 85014; 85018; 85025; 85049; 85520; 85610; 85730; 87641; 93005; 96374; 96375; 99285; G0378; J3490; J0461; J0610; J1265; J1644; J1940